=== PATIENT | male | born 1945 | race Caucasian/White ===

== ENCOUNTER 2018-09-01 05:09 | Inpatient (IN) | payer OTHER, MEDICARE ==
[~2018-09-01] VITALS: Ht 180.3 cm; Wt 111.0 kg
[~2018-09-01 05:09] MED LIST: ALBIPROI INH; ASCO500 PO; ASPART INSULIN; ASPI325 PO; BIOTENE MOIST44.3 ML PO; CIPR500 PO; CITA20 PO; Clotrimazole15 GM TOP; DIPH50 PO; FERROUS GLUCONATE; FISH OIL 1,0001 EAC1 PO; Ferrous Sulfat325 M2 PO; INSN100I SUBQ; INSR10I SUBQ; INSU100I6 SC; INSULANPEN SC; LACT10SY PO; LIDO700A20 TOP; LISI20 PO; MAGOXI400 PO; MELA3 PO; METF500 PO; NADO20 PO; NOVOLOG SUBQ; OMEG1CAP30 PO; OMEP20ER PO; OXYC5 PO; PANT20 PO; PANT40 PO; PROP10 PO; SILD50TA PO; SIMV80 PO; SPIR25 PO; ZOLP10 PO; ZOLP5 PO; [UNRECOGNIZED DRUG - OTHER] TOP
[2018-09-01] MEDS ORDERED: TORSE20 PO (06:07)
[2018-09-01 06:10] LABS: BASOPHILS PERCENT AUTO 0 % (0-2); EOSINOPHILS ABSOLUTE AUTO 0.22 K/mm3 (0.00-0.68); EOSINOPHILS PERCENT AUTO 2 % (0-6); Hematocrit 20.5 % (37.0-53.0); Hemoglobin 7.2 g/dL (13.5-17.5); IMMATURE GRAN ABSOLUTE AUTO 0.04 K/mm3 (0.00-0.10); IMMATURE GRAN PERCENT AUTO 0 % (0-1); LYMPHOCYTES ABSOLUTE AUTO 0.71 K/mm3 (0.84-5.20); LYMPHOCYTES PERCENT AUTO 7 % (21-46); MONOCYTES ABSOLUTE AUTO 0.95 K/mm3 (0.16-1.47); MONOCYTES PERCENT AUTO 9 % (4-13); Mean Corpuscular HGB 34.1 pg (26.0-34.0); Mean Corpuscular HGB Conc 35.1 g/dL (31.5-36.5); Mean Corpuscular Volume 97 fL (80-100); Mean Platelet Volume 9.9 fL (9.1-12.4); NEUTROPHILS ABSOLUTE AUTO 8.69 K/mm3 (1.96-9.15); NEUTROPHILS PERCENT AUTO 82 % (41-73); Platelet Count 55 K/mm3 (150-400); RDW Standard Deviation 67.2 fL (35.1-46.3); Red Blood Cell Count 2.11 M/mm3 (4.30-5.90); White Blood Cell Count 10.61 K/mm3 (4.00-11.30)
[2018-09-01 06:24] LABS: International Normalized Ratio 1.83; Prothrombin Time Results 18.4 Sec (9.7-11.5)
[2018-09-01 06:40] LABS: Albumin, Blood 2.1 g/dL (3.4-5.0); Albumin/Globulin Ratio 0.6 (0.8-1.8); Bilirubin, Total 2.5 mg/dL (0.1-1.0); Bun/Creatinine Ratio 25.6 (12.0-20.0); Calcium, Blood 7.3 mg/dL (8.5-10.1); Creatinine, Blood 3.24 mg/dL (0.60-1.20); Globulin, Blood 3.5 g/dL (2.2-4.0); Potassium, Blood 3.8 mmol/L (3.5-5.5); Total Protein, Blood 5.6 g/dL (6.4-8.2)
--- NOTE | 2018-09-01 11:30 | NUR ---
PT BROUGHT TO ICU 2 VIA GURNEY FROM ED. REPORT FROM GOLDY SANCHEZ. PT WAS MOVED OVER TO ICU BED, VS OBTAINED. HE IS CURRENTLY INFUSING PRBC 1ST UNIT, PROTONIX GTT, AND SANDOSTATIN GTT, HE IS A/OX3, PLEASANT AND COOPERATIVE WITH CARE, FOLLOWS COMMANDS WELL, DENIES PAIN, STATES HE FEELS SOB, LIKE HE HAS TO MUCH FLUID. LEGS ARE WHEEPING, LINEN WAS SOAKED WHEN MOVED OFF OF [facility]. LUNGS ARE CLEAR IN UPPER HUERTAS, DIM IN BASES, BIRD RIGHT BASE, HE IS SATING WELL ON R/A, RESP EVEN AND UNLABORED, NO COUGH NOTED, HRR, LOUD MURMUR NOTED, 4+ PITTING EDEMA NOTED TO B/L WHICH ARE WHEEPING, UNABLE TO VOID, WILL PLACE RAE, SKIN HAS MULTIPLE ECCHYMOTIC AREAS TO ARMS AND WOUND TO COOCYX, SCAB TO LEFT KNEE, AND GREAT TOE. PIX WERE TAKEN AND IN CHART, TAVO [place]TER[place], ORIENTED TO ROOM LAYOUT, CALL SYSTEM, CALL LIGHT IN REACH.
--- NOTE | 2018-09-01 12:58 | NUR ---
GI WAS IN TO SEE HIM, DID NOT WANT SECOND UNIT OF BLOOD SO IT WAS STOPPED, 14F RAE WAS PLACED USING TRACER LATHE SET UP OPERATOR, AND UROJET FOR COMFORT. HE TOLERATED IT WELL. GOOD FLOW OF CLEAR YELLOW URINE RETURN, STARTED ON LACTULOSE GI IS NOT GOING TO SCOPE HIM AT THIS TIME. CALL LIGHT IN REACH.
[2018-09-01 13:29] LABS: Hematocrit 23.2 % (37.0-53.0); Hemoglobin 8.1 g/dL (13.5-17.5)
[2018-09-01 13:51] LABS: Albumin, Blood 2.1 g/dL (3.4-5.0); Anion Gap 11 mmol/L (6-16); Blood Urea Nitrogen 77 mg/dL (8-24); CO2, Blood 15 mmol/L (21-32); Calcium, Blood 7.4 mg/dL (8.5-10.1); Chloride, Blood 99 mmol/L (98-108); Creatinine, Blood 3.08 mg/dL (0.60-1.20); Glomerular Filtration Rate 21 (60-); Glucose, Blood 103 mg/dL (70-99); Phosphorus, Blood 5.2 mg/dL (2.5-4.9); Potassium, Blood 4.2 mmol/L (3.5-5.5); Sodium, Blood 125 mmol/L (136-145)
[2018-09-01 13:56] LABS: Percent Saturation 82.6 % (20.0-50.0)
--- NOTE | 2018-09-01 14:56 | NUR ---
U/S WAS HERE AND DID PARACENTESIS, REMOVED 6.5 LITERS. VS STABLE. PT RESTING IN BED. CALL LIGHT IN REACH.
[2018-09-01 15:26] LABS: Body Fluid WBC Count 40 /mm3 (0-999)
[2018-09-01 15:32] LABS: Albumin, Body Fluid 0.1 g/dL; Glucose, Body Fluid 127 mg/dL; Lactate Dehydrogenase, Body Fl 27 U/L; Protein, Body Fluid 0.2 g/dL
[2018-09-01 17:46] LABS: RBC Count, Body Fluid 76 /mm3 (0-0)
[2018-09-01 17:52] LABS: PCO2 Arterial 24.6 mmHg (35-45); PO2 Arterial 111 mmHg (80-100); pH Blood Arterial 7.34 (7.35-7.45)
[2018-09-01 17:53] LABS: Appearance, Body Fluid Clear (Clear); Color, Body Fluid Yellow (None-Yellow)
[2018-09-01 18:01] LABS: Total Cell Count, Body Fluid 100
[2018-09-01] MEDS ORDERED: POTCHL10ER PO (18:24)
[2018-09-01] MEDS ORDERED: ASCO500 PO (18:27)
[2018-09-01] MEDS ORDERED: Aldactone100 MG PO (18:28)
[2018-09-01] MEDS ORDERED: AMOCLA500 PO (18:30)
[2018-09-01] MEDS ORDERED: AMOX875 PO (18:31)
[2018-09-01] MEDS ORDERED: Fergon240 M1 PO (18:31)
[2018-09-01] MEDS ORDERED: Ferrous Sulfat325 MG PO (18:33)
--- NOTE | 2018-09-01 19:23 | NUR ---
DR. VALLE WAS CONSULTED, NEW ORDERS RECIEVED. FAMILY IN ROOM, BROUGHT HOME MEDICATIONS, THESE WERE PUT INTO HIS CHART, HAS HAD MULTIPLE BMS THAT ARE LOOSE AND MUCOUS, DARK BROWN. NO FURTHER CHANGES THIS SHIFT. CALL LIGHT IN REACH.
[2018-09-01 21:06] LABS: Hematocrit 20.4 % (37.0-53.0)
[2018-09-01 21:27] LABS: Albumin, Blood 2.5 g/dL (3.4-5.0); Anion Gap 14 mmol/L (6-16); Blood Urea Nitrogen 79 mg/dL (8-24); Bun/Creatinine Ratio 26.4 (12.0-20.0); CO2, Blood 14 mmol/L (21-32); Calcium, Blood 7.3 mg/dL (8.5-10.1); Chloride, Blood 100 mmol/L (98-108); Creatinine, Blood 2.99 mg/dL (0.60-1.20); Glomerular Filtration Rate 22 (60-); Glucose, Blood 222 mg/dL (70-99); Phosphorus, Blood 4.8 mg/dL (2.5-4.9); Potassium, Blood 4.3 mmol/L (3.5-5.5); Sodium, Blood 128 mmol/L (136-145)
[2018-09-02 04:06] LABS: BASOPHILS PERCENT AUTO 0 % (0-2); EOSINOPHILS ABSOLUTE AUTO 0.08 K/mm3 (0.00-0.68); EOSINOPHILS PERCENT AUTO 2 % (0-6); Hematocrit 21.2 % (37.0-53.0); Hemoglobin 7.2 g/dL (13.5-17.5); IMMATURE GRAN ABSOLUTE AUTO 0.02 K/mm3 (0.00-0.10); IMMATURE GRAN PERCENT AUTO 1 % (0-1); LYMPHOCYTES PERCENT AUTO 8 % (21-46); MONOCYTES ABSOLUTE AUTO 0.33 K/mm3 (0.16-1.47); MONOCYTES PERCENT AUTO 9 % (4-13); Mean Corpuscular HGB 32.1 pg (26.0-34.0); Mean Corpuscular Volume 95 fL (80-100); Mean Platelet Volume 10.1 fL (9.1-12.4); NEUTROPHILS ABSOLUTE AUTO 3.14 K/mm3 (1.96-9.15); NEUTROPHILS PERCENT AUTO 81 % (41-73); RDW Coefficient Variation 18.6 % (11.7-14.2); RDW Standard Deviation 64.4 fL (35.1-46.3); Red Blood Cell Count 2.24 M/mm3 (4.30-5.90); White Blood Cell Count 3.87 K/mm3 (4.00-11.30)
[2018-09-02 04:24] LABS: Platelet Count 24 K/mm3 (150-400)
[2018-09-02 04:25] LABS: Albumin, Blood 2.5 g/dL (3.4-5.0); Anion Gap 12 mmol/L (6-16); Blood Urea Nitrogen 77 mg/dL (8-24); Bun/Creatinine Ratio 26.9 (12.0-20.0); CO2, Blood 15 mmol/L (21-32); Calcium, Blood 7.2 mg/dL (8.5-10.1); Chloride, Blood 102 mmol/L (98-108); Creatinine, Blood 2.86 mg/dL (0.60-1.20); Glomerular Filtration Rate 23 (60-); Glucose, Blood 157 mg/dL (70-99); Potassium, Blood 4.3 mmol/L (3.5-5.5); Sodium, Blood 129 mmol/L (136-145)
--- NOTE | 2018-09-02 05:00 | NUR ---
UPDATE: DR MONTGOMERY NOTIFIED OF CRITICAL PLATELETS AND THAT HEMOGLOBIN WAS 7.2 AFTER RECEIVING A UNIT OF BLOOD LAST NIGHT. A CBC FOR 0800 WAS ORDERED. NO FURTHER ORDERS RECEIVED AT THIS TIME.
--- NOTE | 2018-09-02 06:46 | NUR ---
UPDATE: DR MONTGOMERY NOTIFIED THAT PATIENT JUST HAD A VERY LARGE, RED AND BROWN, JELLY LIKE STOOL. DR MONTGOMERY SAID THERE WAS NO NEED FOR ANY STOOL SAMPLES AT THIS TIME. AN ORDER FOR ONE UNIT OF PRBC'S WAS ORDERED.
--- NOTE | 2018-09-02 07:15 | NUR ---
RECEIVED REPORT FROM LAURA JAMES, ASSUMED CARE, PATIENT IS AWAKE AND ALERT AND ORIENTED, CONTINUOUS TO HAVE BLOODY STOOLS, ONE UNIT OF PRBCs HUNG FOR HEMOGLOBIN OF 7.2, PATIENT IS ON CLEAR LIQUID DIET, LS DIMINISHED, MURMUR DETECTED, PATIENT IN NSR, ON 2L NC, LOWER EXTREMITIES SHOW 4+ PITTING AND WEEPING EDEMA, PATIENT C/O PAIN IN HIS LEGS D/T EDEMA, PATIENT IS ALSO ON CLINIMAX WHICH IS INFUSING, WELL PROTONIX DRIP AND OCTREOTIDE DRIP, PATIENT IS TREMOLOUS AND SHOWS GENERALIZED WEAKNESS, CALL LIGHT IN REACH, WILL CONTINUE TO MONITOR.
--- NOTE | 2018-09-02 07:18 | NUR ---
SHIFT SUMMARY PATIENT PLEASENT AND COOPERATIVE THROUGHOUT THE NIGHT. PATIENT USED THE BEDPAN SEVERAL TIMES THROUGHOUT THE NIGHT DUE TO PATIENT FEELING WEAK AND TIRED. ONE UNIT OF PRBC'S GIVEN PER ORDES AND A SECOND UNIT ORDERED FOR THIS MORNING. CLINIMX STARTED PER DR VALLE'S ORDER. SANDOSTATIN AND PROTONIX RUNNING PER ORDERS. PATIENT APPEARED TO SLEEP WELL THROUGHOUT THE NIGHT. REPORT GIVEN TO ONCSHARMAINE SANCHEZ.
--- NOTE | 2018-09-02 07:45 | NUR ---
DR. MCCLAIN IN TO SEE PATIENT, NEW ORDERS RECEIVED.
--- NOTE | 2018-09-02 09:08 | NUR ---
DR. VALLE IN TO SEE PATIENT, NEW ORDERS RECEIVED.
[2018-09-02 12:40] LABS: BASOPHILS PERCENT AUTO 0 % (0-2); EOSINOPHILS ABSOLUTE AUTO 0.07 K/mm3 (0.00-0.68); EOSINOPHILS PERCENT AUTO 2 % (0-6); Hematocrit 23.2 % (37.0-53.0); Hemoglobin 7.9 g/dL (13.5-17.5); IMMATURE GRAN ABSOLUTE AUTO 0.02 K/mm3 (0.00-0.10); IMMATURE GRAN PERCENT AUTO 0 % (0-1); LYMPHOCYTES ABSOLUTE AUTO 0.31 K/mm3 (0.84-5.20); LYMPHOCYTES PERCENT AUTO 7 % (21-46); MONOCYTES ABSOLUTE AUTO 0.38 K/mm3 (0.16-1.47); MONOCYTES PERCENT AUTO 9 % (4-13); Mean Corpuscular HGB Conc 34.1 g/dL (31.5-36.5); Mean Corpuscular Volume 94 fL (80-100); NEUTROPHILS ABSOLUTE AUTO 3.68 K/mm3 (1.96-9.15); NEUTROPHILS PERCENT AUTO 83 % (41-73); RDW Coefficient Variation 18.1 % (11.7-14.2); RDW Standard Deviation 62.5 fL (35.1-46.3); Red Blood Cell Count 2.47 M/mm3 (4.30-5.90); White Blood Cell Count 4.46 K/mm3 (4.00-11.30)
[2018-09-02 12:48] LABS: Platelet Count 24 K/mm3 (150-400)
[2018-09-02 13:11] LABS: International Normalized Ratio 2.17; Prothrombin Time Results 21.4 Sec (9.7-11.5)
--- NOTE | 2018-09-02 14:19 | NUR ---
DAY SURGERY CREW IN ROOM, SETTING UP EUQIPMENT FOR PENDING EGD/COLONOSCOPY PROCEDURE.
--- NOTE | 2018-09-02 15:47 | NUR ---
PALLIATIVE CARE RN IN TO SEE PATIENT.
--- NOTE | 2018-09-02 16:28 | NUR ---
DAY SURGERY TEAM BACK IN ROOM, DR. LIZARRAGA IN TO DO EGD AND POSSIBLE COLONOSCOPY FOR PATIENT.
--- NOTE | 2018-09-02 16:51 | NUR ---
09/02/18 1655 Oleg Contreras 3-LEAD EKG REVIEWED WITH PHYSICIAN PRIOR TO START OF PROCEDURE.MONITOR INTACT WITH CONTINUOUS PULSE OXIMETRY AND INTERMITTENT BP.History, Chart, Medications and Allergies reviewed before start of procedure. PT IN ICU ROOM 2, ENDO EQUIP IN ROOM,
--- NOTE | 2018-09-02 17:25 | NUR ---
EGD DONE IN ROOM, NEW ORDERS RECEIVED FROM DR. LIZARRAGA, PATIENT TOLERATED WELL, WILL CONTINUE TO MONITOR.
--- NOTE | 2018-09-02 17:29 | NUR ---
SHIFT SUMMARY NOTE: PATIENT WAS AWAKE AND ALERT AND ORIENTED DURING THIS SHIFT, RECEIVED ONE UNIT OF PRBCs AT BEGINNING OF THIS SHIFT, AND H/H REDRAWN, PATIENT HAD MULTIPLE GELATINOUS SEEDY BMs, NO BLEEDING NOTED, LS CLEAR BUT DIMINISHED, NSR, WITH MURMUR PRESENT, LOWER EXTREMITIES SHOW 4+ PITTING AND WEEPING EDEMA, RAE CATHETER IN PLACE, DRAINING ADEQUATE AMOUNTS OF CLEAR YELLOW URINE, PATIENT HAD CLEAR LIQUID BREAKFAST AND THEN NPO PER DR. LIZARRAGA FOR EGD AND MODIFIED COLONOSCOPY, NO ACTIVE BLEEDING WAS FOUND, PER DR. LIZARRAGA PATIENT MAY HAVE CLEAR LIQUID DIET AGAIN, AND OCTREOTIDE DRIP FOR NEXT 72 HOURS, PROTONIX WAS CHANGED FROM DRIP TO IV BID, RECEIVED REPORT FROM KARTHIKEYAN RN, SURGICAL SERVICES, PATIENT IS AWAKE AT THIS TIME, VSS, WILL CONTINUE TO MONITOR, CALL LIGHT IN REACH, WILL GIVE REPORT TO ONCOMING SLEEP MANAGER.
[2018-09-02 18:04] LABS: Hematocrit 22.4 % (37.0-53.0); Hemoglobin 7.7 g/dL (13.5-17.5)
--- NOTE | 2018-09-02 18:24 | NUR ---
INITIAL PALLIATIVE CARE VISIT: [facility] care ref rec'd per yesterday and again today to discuss goals of care, advanced care planning, AD/POLST completion with pt due to liver, GI, renal issues and medically fragile pt. I reintroduced myself to pt. I have met him on prev admissions and when his was hospitalized also. Pt is lying in bed, just after two person assist to use bedpan completed. He is pale with sl jaundiced sclera. He appears very frail and weak. He has difficulty talking with very much volume and is difficult to hear at times. Pt appears to have waves of spasmotic abd pain and stops talking at times, holding his abdomen. I explain the purpose of my visit to determine what his wishes for care are currently and to make sure the care we are providing is in line with his wishes. He is agreeable to continue the conversation. Pt confirms that if his heart were to stop or he needed respiratory support he would want to be resuscitated at this time "just long enough to say good bye to my kids" but not to continue to live on "machines". I discussed the possibility that pt may not regain the ability to "talk to his kids" if he required rescusitation and that he should express any feelings, thoughts or requests of them in the present time. Pt does not have an AD or POLST on file and I did not feel that pt was able to do that today and he did not express a desire to. He and his , who has severe chronic lung disease have lived in their own home but can no longer manage it & are moving to an apartment, pt tells me. Pt is anticipating an EDG procedure this afteroon and appears anxious and extremely fatigued. Pt has had visitors today and Melanie, his has been om also but she had just left for home. I did not extend my visit or conversation due to pt's profound fatigue and discomfort. Results of my visit shared with pt's RN. Pt is due to have EDG procedure in his room pending availability of Drs. Plan to maintain contact with pt/ during this stay and assist with any evolving plan of care/goals with support to pt/family and s/s management as indicated. Order entered for social media sr strategy manager/care management due to anticipated needs for assist with d/c planning, increased care on d/c.
--- NOTE | 2018-09-02 21:13 | NUR ---
UPDATE: DR MONTGOMERY NOTIFIED OF BLOOD SUGAR OF 254. DR MONTGOMERY GAVE NO ORDERS AT THIS TIME.
[2018-09-03 03:47] LABS: BASOPHILS PERCENT AUTO 0 % (0-2); EOSINOPHILS ABSOLUTE AUTO 0.07 K/mm3 (0.00-0.68); EOSINOPHILS PERCENT AUTO 2 % (0-6); Hematocrit 22.6 % (37.0-53.0); Hemoglobin 7.7 g/dL (13.5-17.5); IMMATURE GRAN ABSOLUTE AUTO 0.01 K/mm3 (0.00-0.10); IMMATURE GRAN PERCENT AUTO 0 % (0-1); LYMPHOCYTES ABSOLUTE AUTO 0.27 K/mm3 (0.84-5.20); LYMPHOCYTES PERCENT AUTO 7 % (21-46); MONOCYTES ABSOLUTE AUTO 0.33 K/mm3 (0.16-1.47); MONOCYTES PERCENT AUTO 8 % (4-13); Mean Corpuscular HGB 33.2 pg (26.0-34.0); Mean Corpuscular HGB Conc 34.1 g/dL (31.5-36.5); Mean Platelet Volume 10.5 fL (9.1-12.4); NEUTROPHILS ABSOLUTE AUTO 3.32 K/mm3 (1.96-9.15); NEUTROPHILS PERCENT AUTO 83 % (41-73); RDW Coefficient Variation 18.3 % (11.7-14.2); RDW Standard Deviation 65.3 fL (35.1-46.3); Red Blood Cell Count 2.32 M/mm3 (4.30-5.90)
[2018-09-03 03:49] LABS: Mean Corpuscular Volume 97 fL (80-100); Platelet Count 23 K/mm3 (150-400)
[2018-09-03 04:01] LABS: Albumin, Blood 2.6 g/dL (3.4-5.0); Anion Gap 10 mmol/L (6-16); Blood Urea Nitrogen 82 mg/dL (8-24); Bun/Creatinine Ratio 29.5 (12.0-20.0); CO2, Blood 16 mmol/L (21-32); Calcium, Blood 7.1 mg/dL (8.5-10.1); Chloride, Blood 105 mmol/L (98-108); Creatinine, Blood 2.78 mg/dL (0.60-1.20); Glomerular Filtration Rate 24 (60-); Glucose, Blood 258 mg/dL (70-99); Magnesium, Blood 1.8 mg/dL (1.6-2.4); Phosphorus, Blood 4.9 mg/dL (2.5-4.9); Potassium, Blood 4.5 mmol/L (3.5-5.5); Sodium, Blood 131 mmol/L (136-145)
[2018-09-03 04:39] LABS: International Normalized Ratio 2.39; Prothrombin Time Results 23.4 Sec (9.7-11.5)
--- NOTE | 2018-09-03 06:18 | NUR ---
SHIFT SUMMARY PATIENT PLEASENT AND COOPERATIVE THROUGHOUT THE NIGHT. HOWEVER PATIENT DID REFUSE SOME CARE. PATIENT UP TO THE BSC WITH 2 PERSON ASSIST, PATIENT USED THE BEDPAN SEVERAL TIMES THROUGHOUT THE NIGHT WELL. BM'S DID NOT APPEAR TO HAVE ANY OBVIOUS BLOOD IN THEM LAST NIGHT. CLINIMX AND SANDOSTATIN RUNNING PER ORDERS. PATIENT APPEARED TO SLEEP WELL ON AND OFF THROUGHOUT THE NIGHT. VITAL SIGNS CHARTED. WILL CONTINUE TO MONITOR PATIENT AND REPORT TO ONCOMING RN.
--- NOTE | 2018-09-03 10:01 | NUR ---
AM ASSESSMENT PT RESTING IN BED. ALERT AND ORIENTED TO SELF AND PLACE, FOLLOWING COMMANDS APPROPRIATELY. VSS. DENIES PAIN THIS AM, GRIMACING AND MOANING OFF AND ON. INCONTINENT OF SMALL STOOL. LEFT LEG 4+ PITTING EDEMA ALONG WITH REDNESS, RIGHT LEG 2+ PITTING EDEMA ALONG WITH REDNESS. ULTRASOUND OF LEFT LEG COMPLETED THIS MORNING. UPDATE PROVIDED TO OVER THE PHONE. CALL LIGHT IN REACH.
--- NOTE | 2018-09-03 11:33 | NUR ---
PT TO XRAY WITH RN AND TRANSPORT. PT TOLERATED WELL.
[2018-09-03 12:22] LABS: Hemoglobin 7.7 g/dL (13.5-17.5)
--- NOTE | 2018-09-03 14:14 | NUR ---
Pt is resting at time of visit. He awakens easily with soft voice cue. He reports that he is having difficulty with fatigue. He states that he is too tired to talk very long and that he would like to sleep. There is no family at the bedside. He confirms full code, does not want to fill out POLST form. Pt returns to resting when I leave the room. Reviewed with nurse Wendy. Will remain available.
--- NOTE | 2018-09-03 15:43 | NUR ---
Pt is alert, oriented. He is busy with care at time of my visit, however, I did benefits counselor to the extensively. She has questions about Palliative care as an outpatient. I instructed that Palliative care is not available to patients in the outpatient setting. Reviewed current plan of care. has questions about hospice. I instruct the that pt is appropriate for hospice at this time. Reviewed current problems, outcomes. Instructed that prognosis is poor, per doctor notes. She verbalizes understanding. She is getting several phone calls at this time and visit was ended. Reviewed conversation with prekindergarten teacherSamantha and nurseWendy.
--- NOTE | 2018-09-03 17:00 | NUR ---
SHIFT SUMMARY PT RESTING IN BED THROUGHOUT THE DAY. VSS. ALERT AND ORIENTED TO SELF, FAMILY AND PLACE. LUNG SOUNDS CLEAR, DIMINISHED BASES. NSR RATE 60s THROUGHOUT THE DAY PER MONITOR. SWELLING NOTED TO ABDOMEN, STATES "IT IS SWELLING UP AGAIN". LEFT HIP TO FOOT 4+ PITTING EDEMA ALONG WITH REDNESS FROM KNEE TO ANKLE, RIGHT HIP TO FOOT 2+ PITTING EDEMA ALONG WITH REDNESS FROM KNEE TO ANKLE WITH CLEAR / YELLOW DRAINAGE NOTED. PT HAS HAD 6 SMALL TO LARGE LOOSE BMs TODAY, INCONTINENT AT TIMES. WILL CONTINUE TO MONITOR.
--- NOTE | 2018-09-03 18:24 | NUR ---
Met with spouse, Melanie, at bedside. Melanie admits she is in poor health as well. "Both of us have spent too much time in the hospital." Melanie appears to be grasping the fact that she and Alethea need to accept change. She also tells me that she knows alethea is nearing end-of-life, and will probably "not get much better." She does not know what she wants to do with this awareness. Alethea seemed fairly lucid, but drifted in and out of sleep throughout visit. Continued vocational guidance counselor and support with benefit this couple. The fact that Melanie recognizes they need help is a big change. She has never wanted to talk about or consider life style change or end-of-life conversation. I will continue to provide vocational guidance counselor in coming days.
[2018-09-03 20:21] LABS: Hematocrit 22.5 % (37.0-53.0); Hemoglobin 7.6 g/dL (13.5-17.5)
[2018-09-04 03:42] LABS: BASOPHILS PERCENT AUTO 0 % (0-2); EOSINOPHILS ABSOLUTE AUTO 0.08 K/mm3 (0.00-0.68); EOSINOPHILS PERCENT AUTO 2 % (0-6); Hematocrit 22.9 % (37.0-53.0); Hemoglobin 7.6 g/dL (13.5-17.5); IMMATURE GRAN ABSOLUTE AUTO 0.02 K/mm3 (0.00-0.10); IMMATURE GRAN PERCENT AUTO 1 % (0-1); LYMPHOCYTES ABSOLUTE AUTO 0.26 K/mm3 (0.84-5.20); LYMPHOCYTES PERCENT AUTO 7 % (21-46); MONOCYTES ABSOLUTE AUTO 0.33 K/mm3 (0.16-1.47); MONOCYTES PERCENT AUTO 8 % (4-13); Mean Corpuscular HGB 32.9 pg (26.0-34.0); Mean Corpuscular HGB Conc 33.2 g/dL (31.5-36.5); Mean Corpuscular Volume 99 fL (80-100); Mean Platelet Volume 11.9 fL (9.1-12.4); NEUTROPHILS ABSOLUTE AUTO 3.28 K/mm3 (1.96-9.15); NEUTROPHILS PERCENT AUTO 83 % (41-73); RDW Coefficient Variation 18.3 % (11.7-14.2); RDW Standard Deviation 67.1 fL (35.1-46.3); Red Blood Cell Count 2.31 M/mm3 (4.30-5.90); White Blood Cell Count 3.97 K/mm3 (4.00-11.30)
[2018-09-04 03:51] LABS: Platelet Count 18 K/mm3 (150-400)
[2018-09-04 04:04] LABS: Anion Gap 13 mmol/L (6-16); Blood Urea Nitrogen 88 mg/dL (8-24); Bun/Creatinine Ratio 31.7 (12.0-20.0); CO2, Blood 15 mmol/L (21-32); Calcium, Blood 7.4 mg/dL (8.5-10.1); Chloride, Blood 105 mmol/L (98-108); Creatinine, Blood 2.78 mg/dL (0.60-1.20); Glomerular Filtration Rate 24 (60-); Glucose, Blood 213 mg/dL (70-99); Phosphorus, Blood 5.1 mg/dL (2.5-4.9); Potassium, Blood 4.7 mmol/L (3.5-5.5); Sodium, Blood 133 mmol/L (136-145)
--- NOTE | 2018-09-04 06:31 | NUR ---
PCU NOC SHIFT SUMMARY PATIENT ALERT AND ORIENTED TO SELF AND LOCATION - IS CONFUSED TO DATE AND SITUATION. PATIENT SLEPT SOUNDLY T/O SHIFT AND AWOKE TO VERBAL STIMULI. PATIENT REPOSITONED Q2 AND SKIN/ASIM/CATH CARE PROVIDED T/O. PATIENT DENIES ANY PAIN. PATIENT HAD BOWEL MOVEMENT X1. RAE CATH DRAINING DARK YELLOW URINE. PATIENT HAS 3-4+ PITTING EDEMA, ABDOMINAL ACITES AND WEEPING EDEMA T/O. PATIENT HAS BUTTOCK ULCER NOTED (PHOTO IN CHART); BLE EXTREMETY SCABS AND WEEPING ULCERS; RIGHT UPPER ARM PIT BRUISING NOTED. POWER GLIDE IN RIGHT UPPER ARM IS WNL AND DRAWS BLOOD WELL. RESP E/U AT REST: L/S CLEAR TO DIM. NO ACUTE EVENTS NOTED T/O SHIFT, VSS. CLINIMIX AND OCTREOTIDE RUNNING T/O SHIFT PER EMAR. WILL CONTINUE TO MONITOR UNTIL REPORT IS GIVEN TO DAY SHIFT RN.
--- NOTE | 2018-09-04 06:31 | NUR ---
MD VALLE TO ROOM NO NEW ORDERS GIVEN TO THIS RN AT THIS TIME. WILL CONTINUE TO MONITOR.
--- NOTE | 2018-09-04 14:15 | NUR ---
Pt is resting with eyes closed, wakes easily to voice cue. Pt denies pain. He is ok with completing a POLST form today. Interventions reviewed. Pt would like chest compressions and shock. He does not want intubation or artificial nutrition. POLST filled out to allow CPR with limited interventions and no artificial nutrition. Pt signs POLST himself. It is placed in the chart. Spoke with nurse Wendy. She will notify Dr. Milner of POLST. Will remain available.
--- NOTE | 2018-09-04 18:30 | NUR ---
SHIFT SUMMARY PT RESTING IN BED THROUGHOUT THE DAY. SLEEPING OFF AND ON. VSS. ALERT AND ORIENTED X3. LUNG SOUNDS CLEAR, DIMINISHED BASES. NSR RATE 70s PER MONITOR, MURMUR NOTED. C/O ALL OVER PAIN, REPOSITIONED FOR COMFORT. 4+ PITTING EDEMA TO LLE, 2+ PITTING EDEMA TO RLE AND 3+ PITTING EDEMA NOTED TO FLANK / ABDOMEN. ABDOMEN IS SOFT, BUT TENDER. INCONTINENT OF STOOL, LOOSE BROWN STOOL, NO OBVIOUS BLEEDING NOTED TODAY. REDNESS NOTED TO BLE WITH WEEPING OF CLEAR / YELLOW LIQUID. PT TOLERATING FULL LIQUIDS FAIRLY WELL. CONTINUE TO RECEIVE CLINIMIX IV. AT BEDSIDE THIS AFTERNOON. WILL CONTINUE TO MONITOR.
[2018-09-05 04:17] LABS: BASOPHILS PERCENT AUTO 0 % (0-2); EOSINOPHILS ABSOLUTE AUTO 0.09 K/mm3 (0.00-0.68); EOSINOPHILS PERCENT AUTO 2 % (0-6); Hematocrit 21.5 % (37.0-53.0); Hemoglobin 7.2 g/dL (13.5-17.5); IMMATURE GRAN ABSOLUTE AUTO 0.02 K/mm3 (0.00-0.10); IMMATURE GRAN PERCENT AUTO 0 % (0-1); LYMPHOCYTES ABSOLUTE AUTO 0.33 K/mm3 (0.84-5.20); LYMPHOCYTES PERCENT AUTO 7 % (21-46); MONOCYTES PERCENT AUTO 6 % (4-13); Mean Corpuscular HGB 32.7 pg (26.0-34.0); Mean Corpuscular HGB Conc 33.5 g/dL (31.5-36.5); Mean Corpuscular Volume 98 fL (80-100); Mean Platelet Volume 11.3 fL (9.1-12.4); NEUTROPHILS ABSOLUTE AUTO 4.16 K/mm3 (1.96-9.15); NEUTROPHILS PERCENT AUTO 85 % (41-73); RDW Coefficient Variation 18.6 % (11.7-14.2); RDW Standard Deviation 66.4 fL (35.1-46.3)
[2018-09-05 04:22] LABS: Platelet Count 17 K/mm3 (150-400)
[2018-09-05 04:38] LABS: Magnesium, Blood 2.2 mg/dL (1.6-2.4)
[2018-09-05 04:40] LABS: Albumin, Blood 3.4 g/dL (3.4-5.0); Anion Gap 11 mmol/L (6-16); Blood Urea Nitrogen 96 mg/dL (8-24); CO2, Blood 16 mmol/L (21-32); Calcium, Blood 7.7 mg/dL (8.5-10.1); Chloride, Blood 109 mmol/L (98-108); Creatinine, Blood 2.82 mg/dL (0.60-1.20); Glomerular Filtration Rate 24 (60-); Glucose, Blood 213 mg/dL (70-99); Phosphorus, Blood 4.8 mg/dL (2.5-4.9); Potassium, Blood 4.7 mmol/L (3.5-5.5); Sodium, Blood 136 mmol/L (136-145)
[2018-09-05 06:59] LABS: PCO2 Arterial 27.6 mmHg (35-45); PO2 Arterial 96 mmHg (80-100); pH Blood Arterial 7.33 (7.35-7.45)
--- NOTE | 2018-09-05 07:44 | NUR ---
[id number]: DOZING, SOMEWHAT IRRITABLE WHEN WAKENED FOR ASSESSMENT. MONITOR SR, NO ECTOPY. VSS. TURNED FROM SIDE TO SIDE W/MINIMAL ASSIST, 2 PERSON ASSIST NEEDED TO BOOST. INCONT SM LOOSE STOOL X2, USED BEDPAN APPROPRIATELY IN AM. PERIANAL AREA VERY TENDER PM, LESS RED & SORE IN AM AFTER MOISTURE BARRIER APPLIED. 5MM PATIAL SKIN THIKNESS OPEN AREA R BUTTOCK CLEAN, DRY. WEEPING BLE, ELEVATED HEELS OFF SURFACE. SLEPT BETWEN NURSING TREATMENTS. ALERT, ORIENTED, CONVERSING IN AM.
--- NOTE | 2018-09-05 07:55 | NUR ---
pt laying in bed seems to be in good spirits, states he's feeling pretty good, lungs are clear dim in bases, resp even and unlabored, no cough noted at this time, is currently on r/a, hrr, monitor in place loud murmur noted, running sr per monitor, see strip, 4+ edema noted, cap refill <3sec, vs stable, low grade temp, iv 22 to r hand and power glide to chris, sites are clear and patent, btx4, abd very large soft denies tenderness, solorzano cath draining yellow urine, sking is very frail, has a small sore to coccyx, le are very red, with an open sore draining clear fluid, arms have multiple ecchymotic areas, maew, general weakness, timothy, call light in reach.
--- NOTE | 2018-09-05 08:57 | NUR ---
pt up to recliner chair, states he is comfortable, no complaints at this time , call light in reach.
--- NOTE | 2018-09-05 12:30 | NUR ---
PT HAS BEEN TRANSFERED TO PCU REPORT GIVEN TO ULYSSES RN, PT TRANSPORTED VIA BED. ALL BELONGINGS WENT WITH PT.
--- NOTE | 2018-09-05 13:32 | NUR ---
NURSING PCU DAYSHIFT: Assumed care of pt at approx 1215. Arrived from ICU via bed accompanied by PCTmarvin to unit bed via slider sheet. Pt oriented to unit, pressure ulcer prevention and fall prevention discussed. Skin assessed, redness and weeping noted to BLE, yeast in folds. Respiratory and cardiac status appear stable at rest. Pt is weak though able to assist w/some ADL's, needs encouragement to move and reposition. Denies any qustions/needs at this time, call light in reach, cont to monitor for changes.
--- NOTE | 2018-09-05 17:08 | NUR ---
NURSING PCU DAYSHIFT SUMMARY: No significant changes noted since arrival to the unit. VS remain stable. Pt has napped t/o much of the afternoon though arouses easily to verbal stimuli. Woke up experiencing expiratory wheezes, denied need/offer for breathing tx. Pt appears to be resting comfortably at this time. Spouse at bedside, call light in reach. Cont to monitor until rpt is givent to NOC RN.
[2018-09-06 04:44] LABS: BASOPHILS PERCENT AUTO 0 % (0-2); EOSINOPHILS ABSOLUTE AUTO 0.09 K/mm3 (0.00-0.68); EOSINOPHILS PERCENT AUTO 2 % (0-6); Hematocrit 21.7 % (37.0-53.0); Hemoglobin 7.4 g/dL (13.5-17.5); IMMATURE GRAN ABSOLUTE AUTO 0.02 K/mm3 (0.00-0.10); IMMATURE GRAN PERCENT AUTO 0 % (0-1); LYMPHOCYTES PERCENT AUTO 8 % (21-46); MONOCYTES ABSOLUTE AUTO 0.46 K/mm3 (0.16-1.47); MONOCYTES PERCENT AUTO 9 % (4-13); Mean Corpuscular HGB 33.9 pg (26.0-34.0); Mean Corpuscular HGB Conc 34.1 g/dL (31.5-36.5); Mean Corpuscular Volume 100 fL (80-100); Mean Platelet Volume 10.4 fL (9.1-12.4); NEUTROPHILS ABSOLUTE AUTO 4.15 K/mm3 (1.96-9.15); NEUTROPHILS PERCENT AUTO 81 % (41-73); RDW Coefficient Variation 18.6 % (11.7-14.2); RDW Standard Deviation 68.7 fL (35.1-46.3); Red Blood Cell Count 2.18 M/mm3 (4.30-5.90); White Blood Cell Count 5.12 K/mm3 (4.00-11.30)
[2018-09-06 04:46] LABS: Platelet Count 16 K/mm3 (150-400)
[2018-09-06 04:59] LABS: Albumin, Blood 3.5 g/dL (3.4-5.0); Anion Gap 10 mmol/L (6-16); Blood Urea Nitrogen 93 mg/dL (8-24); Bun/Creatinine Ratio 33.8 (12.0-20.0); CO2, Blood 17 mmol/L (21-32); Calcium, Blood 7.7 mg/dL (8.5-10.1); Chloride, Blood 112 mmol/L (98-108); Creatinine, Blood 2.75 mg/dL (0.60-1.20); Glomerular Filtration Rate 24 (60-); Glucose, Blood 161 mg/dL (70-99); Magnesium, Blood 2.2 mg/dL (1.6-2.4); Phosphorus, Blood 4.4 mg/dL (2.5-4.9); Potassium, Blood 4.3 mmol/L (3.5-5.5); Sodium, Blood 139 mmol/L (136-145)
--- NOTE | 2018-09-06 06:25 | NUR ---
SHIFT SUMMARY PATIENT PLEASENT THROUGHOUT THE SHIFT. PATIENT APPEARED TO NAP ON AND OFF THROUGHOUT THE NIGHT. PATIENT APPEARED TO REST COMFORTABLY LAST NIGHT. PATIENT TURNED Q2H. PATIENT'S IV FLUIDS AND SANDOSTATIN RUNNING PER ORDERS. PATIENT CONTINUES TO BE VERY EDEMATOUS AND PATIENT'S LEGS CONTINUE TO BE LEAKING LARGE AMOUNTS OF FLUIDS. PATIENT HAD SEVERAL BM'S THROUGHOUT THE NIGHT, NO OBVIOUS BLOOD APPEARED TO BE IN STOOL. WILL CONTINUE TO MONITOR PATIENT AND REPORT TO ONCOMING RN.
--- NOTE | 2018-09-06 15:53 | NUR ---
Met with Ronald this afternoon in his room. He is sleepy, however he awakens when spoken to. His is not currently present. Talked to him about future medical plans. He states that he definitely would not want to be on machines to be kept alive. Asked him if he would want to keep coming to the hospital for treatments. He stated that he knows that he isn't getting any better and he said that he doesn't think he would want to continue to come to the hospital. Asked him about hospice. Briefly explained hospice services, goals and he stated that he might be interested in a program like this. He is currently very weak and sleepy. When I asked him if he had thought about future medical care he said "I want to go to [facility]." I asked if he was talking about [facility] and he said yes. He said he is planning to move into [place] when he is discharged. Will follow up with pt and his tomorrow to further discuss hospice as an option for him. He tries to nod off during the end of our conversation. Will allow him to rest for now and will plan to meet with pt, pt's family, PC and CM tomorrow to discuss future care goals and discharge planning.
--- NOTE | 2018-09-06 19:16 | NUR ---
NURSING PCU DAYSHIFT SUMMARY: No acute changes since initial assessment. Pt OOB to chair w/staff assist, tolerated for a short period of time. Spouse at bedside, update provided, questions answered. Pt denies any current questions/needs. Report provided to accepting RN.
--- NOTE | 2018-09-07 00:29 | NUR ---
UPDATE: PATIENT STATED THAT HE WAS HAVING TROUBLE BREATHING. PATIENT LUNGS VERY COURSE WITH CRACKLES PRESENT. PATIENT O2 STATS DROPPED TO 85-90% ON RA. PATIENT PLACED ON 4L O2 AND BEGAN STATING AT 92%. DR VALLE NOTIFIED AND 2MG IV BUMEX WAS ORDERED. PROVIDED TO PATIENT. PATIENT NOW STATING AT 92-93% ON 2L AND STATES HIS BREATHING, "FEELS BETTER." WILL CONTINUE TO MONITOR.
--- NOTE | 2018-09-07 01:42 | NUR ---
UPDATE: DR VALLE CALLED AND UPDATED THAT ALTHOUGH PATIENT STATES HE'S BREATHING BETTER HIS LUNGS STILL HAVE SIGNIFICANT CRACKLES. AND HE IS STILL STATING AT 92% ON 2L VIA N/C. ORDERS RECEIVED. WILL CONTINUE TO MONITOR.
[2018-09-07 03:38] LABS: PCO2 Arterial 38.7 mmHg (35-45); PO2 Arterial 56.2 mmHg (80-100); pH Blood Arterial 7.29 (7.35-7.45)
--- NOTE | 2018-09-07 04:04 | NUR ---
UPDATE: DR VALLE UPDATED AGAIN. PATIENT CONTINUES TO FEEL LIKE HE'S HAVING TROUBLE BREATHING. LUNGS CONTINUE TO HAVE SIGNIFICANT CRACKLES. PATIENT ALSO CONTINUES TO STAT AT 91-92% ON 2L VIA N/C. NEW ORDERS RECIEVED.
[2018-09-07 04:23] LABS: BASOPHILS PERCENT AUTO 0 % (0-2); EOSINOPHILS ABSOLUTE AUTO 0.04 K/mm3 (0.00-0.68); EOSINOPHILS PERCENT AUTO 1 % (0-6); Hematocrit 23.5 % (37.0-53.0); Hemoglobin 7.7 g/dL (13.5-17.5); IMMATURE GRAN ABSOLUTE AUTO 0.04 K/mm3 (0.00-0.10); IMMATURE GRAN PERCENT AUTO 1 % (0-1); LYMPHOCYTES ABSOLUTE AUTO 0.26 K/mm3 (0.84-5.20); LYMPHOCYTES PERCENT AUTO 6 % (21-46); MONOCYTES ABSOLUTE AUTO 0.18 K/mm3 (0.16-1.47); MONOCYTES PERCENT AUTO 4 % (4-13); Mean Corpuscular HGB 33.2 pg (26.0-34.0); Mean Corpuscular HGB Conc 32.8 g/dL (31.5-36.5); Mean Corpuscular Volume 101 fL (80-100); Mean Platelet Volume 11.3 fL (9.1-12.4); NEUTROPHILS ABSOLUTE AUTO 4.25 K/mm3 (1.96-9.15); NEUTROPHILS PERCENT AUTO 89 % (41-73); RDW Coefficient Variation 18.9 % (11.7-14.2); RDW Standard Deviation 70.1 fL (35.1-46.3); Red Blood Cell Count 2.32 M/mm3 (4.30-5.90); White Blood Cell Count 4.77 K/mm3 (4.00-11.30)
[2018-09-07 04:39] LABS: Anion Gap 11 mmol/L (6-16); Blood Urea Nitrogen 94 mg/dL (8-24); Bun/Creatinine Ratio 34.9 (12.0-20.0); CO2, Blood 19 mmol/L (21-32); Calcium, Blood 8.1 mg/dL (8.5-10.1); Chloride, Blood 110 mmol/L (98-108); Creatinine, Blood 2.69 mg/dL (0.60-1.20); Glomerular Filtration Rate 25 (60-); Glucose, Blood 210 mg/dL (70-99); Magnesium, Blood 2.3 mg/dL (1.6-2.4); Phosphorus, Blood 4.4 mg/dL (2.5-4.9); Potassium, Blood 4.1 mmol/L (3.5-5.5); Sodium, Blood 140 mmol/L (136-145)
[2018-09-07 04:50] LABS: Platelet Count 15 K/mm3 (150-400)
--- NOTE | 2018-09-07 06:46 | NUR ---
SHIFT SUMMARY PATIENT STATES THAT HIS BREATHING CONTINUES TO IMPROVE. THE CRACKLES IN THE PATIENT'S LUNGS ARE ALSO IMPROVING. BUMEX GTT RUNNING PER ORDERS. BICARB GTT NOT RUNNING YET DUE TO LACK OF IV ACCESS. CHARGE NURSE ATTEMPTING TO GAIN A SECOND IV ACCESS AT THIS TIME. WILL START BICARB GTT SOON SECOND IV IS OBTAINED. WILL CONTINUE TO MONITOR PATIENT AND REPORT TO ONCOMING RN.
--- NOTE | 2018-09-07 10:42 | NUR ---
DR VALLE CALLED. REQUEST DC ALBUMIN, PULM CONSULT, PULM HEMMHORRAGE, SOLU-MED 125 MG IV NOW. 3 LABS. TAN, ANCA, ANTIGBM ANTIBODY. DONE
--- NOTE | 2018-09-07 11:14 | NUR ---
Met with Mejia, his Melanie, and Mejia's brother. Mejia states that he is tired. Explained to Mejia and his family that his kidneys and liver are failing and that now his respiratory system is being effected. He states that he is tired of fighting and ready to go on comfort measures. His daughter who lives in [place] is coming to [place] and plans to be here around 4-4:30 today. Pt agreeable to changing his code status to DNR at this time. He would like to continue his medications and gtts currently running until his daughter arrives. He does not want to have anymore testing or lab draws. Explained to pt that we will start comfort care whenever he is ready whether that is this afternoon when his daughter arrives or sooner if he decides that he wants to change to comfort care sooner. Dr. Milner, pt's nurse Bayron, PCU charge poster, and CM RN Adri notified on pt's wishes and plan of care. Pt's did ask where pt would be discharged to and if hospice at the [facility] was an option. Adri PEACOCK RN stated she would contact the [facility] to see if the [facility] was an option for discharge. Melanie is unable to take care of Mejia at their home and Mejia's daughter has been working on getting Mejia and Melanie into [place], however at this time it is not known when/if that transition will happen. Both local hospice agengies would not be able to admit pt into their program until Monday or Monday next week. It is very likely that pt will continue to decline and will pass away in the hospital. Mejia and Melanie both state that they understand this.
--- NOTE | 2018-09-07 11:56 | NUR ---
RE CONSULT, DR WHITE. BETWEEN TIME DR VALLE ORDERED CONSULT AND TIME SPOKE TO DR WHITE. PT OPTED FOR COMFORT CARE. DR WHITE STATES WILL NOT SEE PT UNLESS DR VALLE STILL WANTS. AND IF HE DOES WILL BE THIS SENIA. CALLED DR VALLE, HE UNDERSTANDS. WOULD LIKE DR WHITE TO SEE ANYWAY. HIS ORDER BEFOER CC. CALLED PAGER. [id number]
--- NOTE | 2018-09-07 12:03 | NUR ---
RE CONSULT. PER DR VALLE. ORDERS ARE IN PRIOR TO ACTUAL ORDERS FOR CC. THEREFORE OKAY TO SEE. CALLED DR MARINO. HE TO SEE TO THIS AFT.
--- NOTE | 2018-09-07 16:30 | NUR ---
PT HAS BEEN MOVED TO COMFORT CARE. ORDERS WORKING. NOTIFIED. FAMILY ON BOARD. MEDICATING FOR PAIN. WILL FOLLOW
--- NOTE | 2018-09-07 17:00 | NUR ---
Met with pt and his family again this afternoon. Pt made the decision to move to comfort care this afternoon. Dr. Milner notified and orders placed in the EMR. Pt's daughter arrived. Explained pt's deteriorating condition and answered her questions. She is tearful but agrees that pt is nearing the end of his life. Explained that pt will be moved to a medical floor room when one is available. Comfort cart ordered for family. Pt's daughter had questions re: discharge. Explained that he likely will continue to deteriorate and may not survive until discharge. If pt is not eminent in the coming days, will have CM look into [facility] or other discharge option. Pt's daughter states she will contact [facility] tomorrow and tell them that pt will not be moving there. Update pt's nurse, Bayron of new comfort care orders.
--- NOTE | 2018-09-07 17:59 | NUR ---
PT STRUGGLED WITH BREATHNG T/O DAY. WHEN SLEEPS DOES RELAX MMORE. PT HAS BEEN MOVED TO COMFORT CARE. MEDICATED FOR PAIN THIS SENIA. FENTANYL PATCH AND ANNE. IS SLEEPY AT THIS TIME. PT TALKING WITH FAMILY. IV FLUIDS D/C. NO OTHER CONCERNS AT THIS TIME. PT LABORED BREATHING. MORE DIM AND COARSE THAN THIS AM. BED IN LOW POSITION, CALL LITE IN REACH, FAMILY AT BEDSIDE.
--- NOTE | 2018-09-08 05:04 | NUR ---
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
--- NOTE | 2018-09-08 13:09 | NUR ---
Time of : Pt at 1210. Family reports that pt appeared restful and peaceful at time that pt passed. Consulted Jennifer from pastoral care and consulted palliative care for extra support. Family in room at this time. They deny any further needs or questions at this time. Will continue to provide therapeutic support to family until final discharge.
--- NOTE | 2018-09-08 13:12 | NUR ---
Notified Dr. Milner that pt passed at 1210.
--- NOTE | 2018-09-08 13:38 | NUR ---
Called at [facility] to provide bereavement consumer credit counselor and prayer. Family tearful and appropriate. Dtr had expressions of anger. Helped her navigate through this to peace. , Melanie seems very well supported by friends. Encouraged allowing friends to care for her for awhile. She agreed she would. [facility] has been selected for arrangements. Provided Melanie with my contact information for consumer credit counselor in future.
--- NOTE | 2018-09-08 17:57 | NUR ---
Update: Pt picked up by Dany Kapadia from [facility] at 1535 once family was ready. Pt family took home all personal belongings. Family denied any further questions after leaving the hospital.
== END 2018-09-08 15:45 | DRG 368 ==
LOC: ER 05:09 → ICUW 07:56 → ICUE 07:56 → PCU 09-05 12:32
PROVIDERS: Emergency Medicine; Hospitalist; Internal Medicine; Internal Medicine Nephrology; ADMIT Family Medicine
PROC: 30233N1 Transfusion of Nonautologous Red Blood Cells into Peripheral Vein, Percutaneous Approach (ICD-10-PCS; principal; 2018-09-01)
PROC: 0W9G3ZZ Drainage of Peritoneal Cavity, Percutaneous Approach (ICD-10-PCS; 2018-09-01)
PROC: 06L38CZ Occlusion of Esophageal Vein with Extraluminal Device, Via Natural or Artificial Opening Endoscopic (ICD-10-PCS; 2018-09-02)
PROC: 0DJD8ZZ Inspection of Lower Intestinal Tract, Via Natural or Artificial Opening Endoscopic (ICD-10-PCS; 2018-09-02)
DX: I85.01 Esophageal varices with bleeding (principal); J18.9 Pneumonia, unspecified organism; K76.7 Hepatorenal syndrome; J96.01 Acute respiratory failure with hypoxia; N18.4 Chronic kidney disease, stage 4 (severe); K76.6 Portal hypertension; E87.1 Hypo-osmolality and hyponatremia; D62 Acute posthemorrhagic anemia; R18.8 Other ascites; E87.2 Acidosis; L03.115 Cellulitis of right lower limb; L03.116 Cellulitis of left lower limb; Z51.5 Encounter for palliative care; K72.90 Hepatic failure, unspecified without coma; E78.5 Hyperlipidemia, unspecified; I35.0 Nonrheumatic aortic (valve) stenosis; Z87.891 Personal history of nicotine dependence; Z79.4 Long term (current) use of insulin; E11.649 Type 2 diabetes mellitus with hypoglycemia without coma; F43.10 Post-traumatic stress disorder, unspecified; B19.20 Unspecified viral hepatitis C without hepatic coma; K75.81 Nonalcoholic steatohepatitis (NASH); I12.9 Hypertensive chronic kidney disease with stage 1 through stage 4 chronic kidney disease, or unspecified chronic kidney disease; I25.10 Atherosclerotic heart disease of native coronary artery without angina pectoris; E86.1 Hypovolemia; I95.9 Hypotension, unspecified; E88.09 Other disorders of plasma-protein metabolism, not elsewhere classified; D69.6 Thrombocytopenia, unspecified; E87.70 Fluid overload, unspecified
CPT/HCPCS: 36415; 36430; 36600; 49083; 51702; 71045; 71046; 76770; 80048; 80053; 80069; 82042; 82607; 82728; 82746; 82803; 82945; 82947; 83540; 83550; 83615; 83735; 84157; 84300; 85014; 85018; 85025; 85610; 86850; 86900; 86901; 86923; 87070; 87205; 89051; 93005; 93010; 93971; 94640; 94760; 96365; 96368; 96375; 96376; 99285-25; C1751; C9113; J0456; J0696; J0881; J1170; J1815; J2060; J2930; J3010; J7030; J7050; J7070; J7120; J7131; P9016; P9046